=== PATIENT | male | born 1970 | race Caucasian/White ===

== ENCOUNTER 2022-01-13 19:30 | Outpatient (CLI) | payer BC | END 2022-01-13 19:31 | disposition home or self-care (01) | LOC: SLEEPLAB 19:30 | PROVIDERS: ATTEND Internal Medicine | DX: G47.33 Obstructive sleep apnea (adult) (pediatric) (principal); R06.83 Snoring; I10 Essential (primary) hypertension; G47.10 Hypersomnia, unspecified; G47.00 Insomnia, unspecified | CPT/HCPCS: 95810 ==